=== PATIENT | male | born 1990 | race Caucasian/White ===

== ENCOUNTER 2017-12-01 03:58 | Emergency (ER) | payer SELFPAY ==
[~2017-12-01] VITALS: Ht 172.7 cm; Wt 77.3 kg
[~2017-12-01 03:58] MED LIST: NO HOME MEDICATIONS; ZOFRAN 4MG T4 MG/TAB PO
[2017-12-01 04:04] VITALS: BP 137/98; PULSE 81; TEMP 98.9
[2017-12-01] MEDS ORDERED: VOLTAREN 75 DR75 MG PO (04:27)
[2017-12-01] MEDS ORDERED: TYLENOL W/COD1 UDTAB PO (04:27)
== END 2017-12-01 04:47 | disposition home or self-care (01) ==
LOC: COL.ER 03:58
DX: S43.102A Unspecified dislocation of left acromioclavicular joint, initial encounter (principal); F17.210 Nicotine dependence, cigarettes, uncomplicated; V86.96XA Unspecified occupant of dirt bike or motor/cross bike injured in nontraffic accident, initial encounter; Y92.830 Public park as the place of occurrence of the external cause
CPT/HCPCS: J1885

== ENCOUNTER 2018-11-08 12:40 | Emergency (ER) | payer MEDICAID ==
[~2018-11-08] VITALS: Ht 170.2 cm; Wt 77.3 kg
[~2018-11-08 12:40] MED LIST changes: +TYLENOL W/COD1 UDTAB PO; +VOLTAREN 75 DR75 MG PO
[2018-11-08 12:49] VITALS: TEMP 97.6
[2018-11-08 13:11] LABS: BASO # 0.1 (0.0-0.2); BASO % 0.3 % (0.0-2.0); EOS % 0.1 % (0-4.0); GRAN # 16.3 (1.4-6.5); GRAN % 88.8 % (42.2-75.2); HEMATOCRIT 49.3 % (42.0-52.0); HEMOGLOBIN 16.9 g/dl (13.5-18.0); LYMPH # 0.9 (1.2-3.4); MEAN CELL VOLUME 86 fl (80.0-100.0); MEAN CORPUSCULAR HEMOGLOBIN 29 pg (27.0-31.0); MEAN CORPUSCULAR HGB CONC 34 g/dl (33.0-37.0); MEAN PLATELET VOLUME 11.2 fl (7.4-10.4); MONO % 5.3 % (1.7-9.3); PLATELET COUNT 264 K/mm3 (130-400); RED BLOOD COUNT 5.76 M/mm3 (4.20-5.60); REDCELL DISTRIBUTION WIDTH-CV 12.9 % (11.5-14.5)
[2018-11-08 13:19] LABS: BILIRUBIN,TOTAL 0.9 mg/dL (0.0-1.0); C-REACTIVE PROTEIN 1.1 mg/dL (0.0-0.9); CALCIUM 10.1 mg/dL (8.4-10.2); POTASSIUM 4.4 mmol/L (3.4-5.0); TOTAL PROTEIN 8.4 gm/dL (6.4-8.2)
[2018-11-08 14:04] LABS: ERYTHROCYTE SEDIMENTATION RATE 1 mm/hr (0-15)
[2018-11-08] MEDS ORDERED: NORCO 325 MG-51 TAB PO (15:08)
[2018-11-08] MEDS ORDERED: ZOFRAN ODT4 MG PO (15:08)
[2018-11-08] MEDS ORDERED: PREDNISONE20 MG PO (15:08)
[2018-11-08 15:24] VITALS: BP 128/80; PULSE 67
== END 2018-11-08 15:24 | disposition home or self-care (01) ==
LOC: COL.ER 12:40
PROVIDERS: Nurse Practitioner
DX: K50.90 Crohn's disease, unspecified, without complications (principal); F17.210 Nicotine dependence, cigarettes, uncomplicated
CPT/HCPCS: J2270; J2405; J7030; Q9967

== ENCOUNTER 2022-11-10 10:56 | Emergency (ER) | payer MEDICAID ==
[~2022-11-10] VITALS: Ht 172.7 cm; Wt 77.3 kg
[~2022-11-10 10:56] MED LIST changes: +NORCO 325 MG-51 TAB PO; +PREDNISONE20 MG PO; +ZOFRAN ODT4 MG PO
[2022-11-10 11:00] VITALS: BP 125/80; TEMP 98.4
[2022-11-10] MEDS ORDERED: AMOXICILLIN 8751 TAB PO (11:13)
[2022-11-10 11:27] VITALS: PULSE 78
== END 2022-11-10 11:30 | disposition home or self-care (01) ==
LOC: COL.ER 10:56
DX: K04.7 Periapical abscess without sinus (principal); Z28.310 Unvaccinated for COVID-19